=== PATIENT | female | born 1975 | race African-American/Black ===

== ENCOUNTER 2019-04-25 21:51 | Observation (INO) | payer SELFPAY ==
[2019-04-25] MEDS ORDERED: NORMAL SALINE 1000 ML 1,000 ML IV ONE ×2 (22:54→23:38)
[2019-04-25] MEDS ORDERED: METHYLPREDNISOLONE INJ 125 MG/2 ML SDV IV ONE (22:55)
[2019-04-25] MEDS ORDERED: FAMOTIDINE INJ/PF 20 MG/2 ML SDV IV ONE (22:56)
[2019-04-25] MEDS ORDERED: MORPHINE SULFATE 10 MG/ML INJ IV ONE (22:57)
[2019-04-25] MEDS ORDERED: ONDANSETRON HCL INJ/PF 4 MG/2 ML SDV IV ONE (22:57)
--- NOTE | 2019-04-25 22:58 | ER Document Report ---
ED General - General Stated Complaint: NEAR SYNCOPE Time Seen by Provider: 04/25/19 22:32 Mode of Arrival: Medic Information source: Patient, Relative - [facility] Notes: Patient is a 43-year-old female history of multiple sclerosis, is legally blind, stage IV spinal cancer, migraines, previous gastric bypass, who states that she was just restarted on her Rituxan chemotherapy for her spinal cancer and ended u p having some mild diarrhea x2 earlier today without any blood or recent history of antibiotics and then stated she ate some pizza and thinks that she had an allergic reaction to something that she had eaten and developed lightheadedness with itching in her throat and a mild dry cough. The patient states this would fit for previous multiple allergic reactions. The patient took Benadryl with improvement in the cough but still felt lightheaded. When EMS arrived to pick patient up she had blood pressure 64 systolic with a pulse rate that went up to 166 on standing but recovered with normal saline bolus and patient being laid back down flat again. There was no report of any specific arrhythmia besides the tachycardia. The patient denies any chest pain or shortness of breath, but she does report some lower abdominal pain. No vaginal discharge or bleeding. She denies any constipation, vomiting. The patient does report some nausea. The patient states she has chronic back pain which is unchanged related to her spinal cancer. No new numbness or focal weakness. No skin rash or obvious itching. In route the patient gave normal saline bolus 300 cc. Medications topiramate, tramadol, Fioricet, Lexapro, prednisone, levothyroxine, Rituxan, docusate, polyethylene glycol, cetirizine, iron, multivitamin. - Related Data Allergies/Adverse Reactions: acetaminophen [From Tylenol] Allergy (Verified 04/26/19 00:18) iodine Allergy (Verified 04/26/19 00:18) latex Allergy (Verified 04/26/19 00:18) Past Medical History - General Information source: Patient, Relative - Social History Smoking Status: Unknown if Ever Smoked Frequency of alcohol use: None Drug Abuse: None Lives with: Family - Patient recently moved from the [facility] to live with family. Family History: Reviewed & Not Pertinent Review of Systems - Review of Systems -: Yes All other systems reviewed and negative Physical Exam - Vital signs Vitals: Pulse Ox 100 04/25/19 22:10 - Notes Notes: PHYSICAL EXAMINATION: GENERAL: well-nourished and in no acute distress. Patient is legally blind but has significant photophobia which is chronic related to her multiple sclerosis. HEAD: Atraumatic, normocephalic. EYES: Pupils equal round and reactive to light, extraocular movements intact, conjunctiva are normal. ENT: Nares patent, oropharynx clear without exudates. Dry mucous membranes. NECK: Normal range of motion, supple without lymphadenopathy. No carotid bruits. LUNGS: Breath sounds clear to auscultation bilaterally and equal. No wheezes rales or rhonchi. HEART: Regular rate and rhythm without murmurs ABDOMEN: Soft, nondistended abdomen. No guarding, no rebound. No masses appreciated. Tender through the lower midline abdominal region. No mass. Female : deferred Musculoskeletal: Normal range of motion, no pitting or edema. No cyanosis. NEUROLOGICAL: Cranial nerves grossly intact. Normal speech. Chronic generalized weakness which is unchanged and related to the patient's chronic multiple sclerosis. No acute unilateral finding noted. PSYCH: Normal mood, normal affect. SKIN: Warm, Dry, normal turgor, no rashes or lesions noted. Course - Re-evaluation Re-evalutation: 04/25/19 23:32 Patient had already taken Benadryl with improvement. There is no evidence for anaphylaxis. The patient was given IV Pepcid and Solu-Medrol and normal saline bolus. She was given Zofran and morphine for nausea and discomfort. 04/26/19 05:04 Patient had some relief after morphine was given for pain, but pain returned. She was given additional pain medication. Repeat exam still showed pain to the lower abdominal region diffusely. CT scan showed jejunitis with questionable abnormality related to a stitch at the location. Symptoms would fit for this given the pain and mild diarrhea. Stool studies are ordered on the patient, although she only describes 2 slightly loose bowel movements in the last 24 hours and no recent antibiotics. Patient was given 2 L of normal saline then started on normal saline with 20 of KCl at 500 cc an hour. 04/26/19 06:12 Blood cultures and lactic acid and urine culture ordered on the patient. Patient may have a mild UTI. Discussion was undertaken with the surgical list Dr. Persaud who agreed to consult on the patient. He stated he would make the decision on antibiotics based upon his assessment. - Vital Signs Vital signs: Temp Pulse Resp BP Pulse Ox 97.8 F 56 H 122/74 100 04/26/19 05:15 04/26/19 05:15 04/26/19 05:15 04/26/19 05:15 - Laboratory Result Diagrams: 04/25/19 23:40 04/25/19 23:40 Laboratory results interpreted by me: 04/25/19 04/25/19 04/25/19 23:40 23:40 23:40 WBC 13.3 H Hgb 10.4 L Hct 33.7 L MCV 74 L MCH 22.7 L MCHC 30.8 L RDW 18.4 H Plt Count 459 H Lymph % (Auto) 5.9 L Absolute Neuts (auto) 11.4 H Seg Neutrophils % 85.9 H Sodium 134.7 L Potassium 3.5 L AST 143 H Alkaline Phosphatase 133 H Albumin 3.3 L TSH 5.10 H Urine Nitrite 04/26/19 05:12 WBC Hgb Hct MCV MCH MCHC RDW Plt Count Lymph % (Auto) Absolute Neuts (auto) Seg Neutrophils % Sodium Potassium AST Alkaline Phosphatase Albumin TSH Urine Nitrite POSITIVE H - EKG Interpretation by Me EKG shows normal: Sinus rhythm Additional EKG results interpreted by me: 04/26/19 01:02 EKG as interpreted by me showed normal sinus rhythm heart rate of 81. There is no gross evidence for acute WI or ischemia noted. There is no old EKG available for comparison. Discharge - Discharge Clinical Impression: Near syncope Hypotension Qualifiers: Hypotension type: unspecified hypotension type Qualified Code(s): I95.9 - Hypotension, unspecified Diarrhea Qualifiers: Diarrhea type: unspecified type Qualified Code(s): R19.7 - Diarrhea, unspecified Condition: Stable Disposition: OTHER
--- NOTE | 2019-04-25 23:46 | RADIOLOGY REPORT (SQ) ---
EXAM DESCRIPTION: XR CHEST 1 VIEW COMPLETED DATE/TME: 04/25/2019 22:53 CLINICAL HISTORY: 43 years, Female, cough COMPARISON: None. NUMBER OF VIEWS: One TECHNIQUE: Single view of the chest was obtained portably LIMITATIONS: None. FINDINGS: Cardiac and mediastinal contours are normal in appearance. Lungs are clear. No pleural effusion or pneumothorax. Multiple surgical clips project over the left upper quadrant. Mild rightward curvature of the thoracic spine is noted. IMPRESSION: No acute disease. copyright 2010 [employer]- All Rights Reserved
[2019-04-26 00:04] LABS: ABSOLUTE LYMPHOCYTES (AUTO) 0.8 10^3/uL (0.5-4.7); ABSOLUTE MONOCYTES (AUTO) 1.1 10^3/uL (0.1-1.4); ABSOLUTE NEUT (AUTO) 11.4 10^3/uL (1.7-8.2); BASOPHILS % (AUTO) 0.2 % (0-2); HEMATOCRIT 33.7 % (36.0-47.0); HEMOGLOBIN 10.4 g/dL (12.0-15.5); LYMPHOCYTES % (AUTO) 5.9 % (13-45); MEAN CORPUSCULAR HEMOGLOBIN 22.7 pg (27.0-33.4); MEAN CORPUSCULAR HGB CONC 30.8 g/dL (32.0-36.0); MEAN CORPUSCULAR VOLUME 74 fl (80-97); PLATELET COUNT 459 10^3/uL (150-450); RED BLOOD COUNT 4.57 10^6/uL (3.72-5.28); RED CELL DISTRIBUTION WIDTH 18.4 % (11.5-14.0); SEGMENTED NEUTROPHILS % (AUTO) 85.9 % (42-78); TOTAL CELLS COUNTED % (AUTO) 100 %; WHITE BLOOD COUNT 13.3 10^3/uL (4.0-10.5)
[2019-04-26 00:30] LABS: ALBUMIN 3.3 g/dL (3.5-5.0); ALKALINE PHOSPHATASE 133 U/L (38-126); ANION GAP 6 (5-19); ASPARTATE AMINO TRANSFERASE 143 U/L (14-36); BILIRUBIN,DIRECT 0.1 mg/dL (0.0-0.4); BILIRUBIN,TOTAL 0.3 mg/dL (0.2-1.3); BLOOD UREA NITROGEN 11 mg/dL (7-20); CALCIUM 8.5 mg/dL (8.4-10.2); CARBON DIOXIDE 25 mmol/L (22-30); CHLORIDE 104 mmol/L (98-107); GLUCOSE 86 mg/dL (75-110); POTASSIUM 3.5 mmol/L (3.6-5.0); TOTAL PROTEIN 6.5 g/dL (6.3-8.2)
[2019-04-26 00:50] LABS: FREE T4 (FREE THYROXINE) 0.89 ng/dL (0.78-2.19)
[2019-04-26 01:03] LABS: THYROID STIMULATING HORMONE 5.1 uIU/mL (0.47-4.68)
--- NOTE | 2019-04-26 02:02 | RADIOLOGY REPORT (SQ) ---
EXAM DESCRIPTION: CT ABDOMEN PELVIS WITHOUT IV CONTRAST COMPLETED DATE/TME: 04/26/2019 01:01 CLINICAL HISTORY: 43 years Female, abd pain lower, hx of spinal tumor Comparison: None. Technique: No contrast. Coronal and sagittal reformat. This exam was performed according to our departmental dose-optimization program, which includes automated exposure control, adjustment of the mA and/or kV according to patient size and/or use of iterative reconstruction technique.[facility]: Dose Right [facility]: CareDose [facility]: Dose Right [facility]: Teradose 4D [facility]: [employer] LIMITATIONS: None Findings: Cholecystectomy. Gastric suture-clips. Moderate jejunitis with partially loculated jejunal bowel at the left paracentral abdomen, image 37 series 3. Suture material partially encapsulated loop of jejunal bowel the left paracentral abdomen with moderate jejunal bowel wall thickening. No significant thecal sac/cord or nerve root compression. No ascites. No pneumoperitoneum. Normal appendix. No hydronephrosis or hydroureter. No renal/ureteral stone. No evidence of abdominal aortic aneurysm. Unenhanced lower thorax, abdominopelvic structures, and musculoskeleton appear otherwise grossly unremarkable. Impression: Moderate jejunitis with partially loculated jejunal bowel at the left paracentral abdomen, image 37 series 3; there is associated suture. Additional gastric suture-clips. No current obstructive sequelae.
[2019-04-26] MEDS ORDERED: MORPHINE SULFATE 10 MG/ML INJ IV ONE (02:11)
[2019-04-26] MEDS ORDERED: POTASSI CL 20 MEQ/NS 1L 1,000 ML IV ONE (04:04)
[2019-04-26 05:26] LABS: APPEARANCE,URINE SLIGHTLY-CLOUDY; BILIRUBIN,URINE NEGATIVE (NEGATIVE); COLOR,URINE YELLOW; GLUCOSE, URINE NEGATIVE (NEGATIVE); KETONES,URINE NEGATIVE (NEGATIVE); LEUKOCYTE ESTERASE,URINE NEGATIVE (NEGATIVE); NITRITE,URINE POSITIVE (NEGATIVE); PROTEIN,URINE NEGATIVE (NEGATIVE); URINE SPECIFIC GRAVITY 1.015; UROBILINOGEN,URINE NEGATIVE mg/dL (<2.0)
[2019-04-26] MEDS ORDERED: PIPERACILLIN/TAZOBACTAM 3.375 GM VIAL IV ONE ×2 (06:38→11:26)
--- NOTE | 2019-04-26 06:58 | EKG REPORT ---
SEVERITY:- NORMAL ECG - SINUS RHYTHM : Confirmed by: Abebe Menard MD 26-Apr-2019 06:58:16
[2019-04-26] MEDS ORDERED: NORMAL SALINE 1000 ML 1,000 ML IV PRN ×2 (10:08→19:32)
[2019-04-26] MEDS ORDERED: MORPHINE SULFATE 10 MG/ML INJ IV PRN ×3 (11:17→21:40)
[2019-04-26] MEDS ORDERED: GLUCAGON,HUMAN RECOMB 1 MG INJ SUBCUT PRN (11:17)
[2019-04-26] MEDS ORDERED: DEXTROSE 40% GEL 15 GM TUBE PO PRN ×2 (11:17)
[2019-04-26] MEDS ORDERED: DEXTROSE 50%-WATER 25 GM/50 ML DISP.SYRIN IV PRN ×2 (11:17)
--- NOTE | 2019-04-26 11:17 | PDOC H&P ---
History of Present Illness Admission Date/PCP: 04/26/19 08:18 Patient complains of: abdominal pains History of Present Illness: This is a 43-year-old female with history of gastric bypass, hypothyroidism, MS, stage IV STOR[employer]CH[employer] tumor/spine, who started complaining of abdominal pains with near syncopal episode after eating pizza last night at around 7:30 PM. Went to ED after EMS noted her to be hypotensive who responded to IV fluids. She had associated nausea. Denies any fever no chills. She had a CT scan of the abdomen which showed intussusception of the jejunum at the area of the Enrico-en-Y bypass. Past Medical History Cardiac Medical History: Reports: Other - MS Stage 4 spinal ca on chemotherapy Malignancy Medical History: Reports: Bone Cancer - 0f spine stage 4 on chemotherapy Past Surgical History Past Surgical History: Reports: Cholecystectomy, Gastric Bypass Surgery, Other - Umbilical hernia repair with use of mesh 2014 Social History Lives with: Family - Patient recently moved from the [place] area to live with family. Smoking Status: Unknown if Ever Smoked Family History Family History: Reviewed & Not Pertinent Parental Family History Reviewed: Yes Children Family History Reviewed: No Sibling(s) Family History Reviewed.: No Medication/Allergy Home Medications: Diphenhydramine HCl [Benadryl] 50 mg PO BID 04/26/19 Escitalopram Oxalate [Lexapro] 5 mg PO DAILY 04/26/19 Fluticasone Propionate [Flonase Nasal Tavernier 50 Mcg/Tavernier 16 gm] 2 sprays NASL Q12 04/26/19 Levothyroxine Sodium [Synthroid 0.112 mg Tablet] 112 mcg PO DAILY 04/26/19 Prednisone 10 mg PO DAILY 04/26/19 Topiramate [Topamax 25 mg Tablet] 25 mg PO Q12 04/26/19 Tramadol HCl [Ultram 50 mg Tablet] 50 mg PO Q6HP PRN 04/26/19 Allergies/Adverse Reactions: acetaminophen [From Tylenol] Allergy (Verified 04/26/19 00:18) iodine Allergy (Verified 04/26/19 00:18) latex Allergy (Verified 04/26/19 00:18) Review of Systems Constitutional: PRESENT: as per HPI Gastrointestinal: PRESENT: abdominal pain, nausea Musculoskeletal: PRESENT: back pain Physical Exam Vital Signs: Temp Pulse Resp BP Pulse Ox 98.0 F 17 112/73 99 04/26/19 07:59 04/26/19 10:00 04/26/19 07:59 04/26/19 10:00 Intake & Output 04/25/19 04/26/19 04/27/19 06:59 06:59 06:59 Intake Total 1999 1000 Balance 1999 1000 Weight 77.111 kg General appearance: PRESENT: mild distress Head exam: PRESENT: atraumatic Eye exam: PRESENT: conjunctiva pink Mouth exam: PRESENT: moist Neck exam: PRESENT: full ROM Respiratory exam: PRESENT: clear to auscultation penelope Cardiovascular exam: PRESENT: RRR Pulses: PRESENT: normal radial pulses Vascular exam: PRESENT: normal capillary refill GI/Abdominal exam: PRESENT: soft, tenderness - Epigastric area Rectal exam: PRESENT: deferred Extremities exam: PRESENT: full ROM Musculoskeletal exam: PRESENT: ambulatory Neurological exam: PRESENT: alert, oriented to person, oriented to place, oriented to time, oriented to situation Psychiatric exam: PRESENT: appropriate affect Skin exam: PRESENT: normal color, warm Results Laboratory Results: 04/25/19 23:40 04/25/19 23:40 04/25/19 04/25/19 04/25/19 23:40 23:40 23:40 WBC 13.3 H RBC 4.57 Hgb 10.4 L Hct 33.7 L MCV 74 L MCH 22.7 L MCHC 30.8 L RDW 18.4 H Plt Count 459 H Seg Neutrophils % 85.9 H Sodium 134.7 L Potassium 3.5 L Chloride 104 Carbon Dioxide 25 Anion Gap 6 BUN 11 Creatinine 0.75 Est GFR ( Amer) > 60 Glucose 86 Lactic Acid Calcium 8.5 Magnesium 1.6 Total Bilirubin 0.3 AST 143 H Alkaline Phosphatase 133 H Total Protein 6.5 Albumin 3.3 L TSH 5.10 H Free T4 0.89 Serum HCG, Qual Urine Color Urine Appearance Urine pH Ur Specific [place] Urine Protein Urine Glucose (UA) Urine Ketones Urine Blood Urine Nitrite Ur Leukocyte Esterase Urine WBC (Auto) Urine RBC (Auto) 04/25/19 04/26/19 04/26/19 23:40 05:12 06:20 WBC RBC Hgb Hct MCV MCH MCHC RDW Plt Count Seg Neutrophils % Sodium Potassium Chloride Carbon Dioxide Anion Gap BUN Creatinine Est GFR ( Amer) Glucose Lactic Acid 0.8 Calcium Magnesium Total Bilirubin AST Alkaline Phosphatase Total Protein Albumin TSH Free T4 Serum HCG, Qual NEGATIVE Urine Color YELLOW Urine Appearance SLIGHTLY-CLOUDY Urine pH 6.0 Ur Specific [place] 1.015 Urine Protein NEGATIVE Urine Glucose (UA) NEGATIVE Urine Ketones NEGATIVE Urine Blood NEGATIVE Urine Nitrite POSITIVE H Ur Leukocyte Esterase NEGATIVE Urine WBC (Auto) 3 Urine RBC (Auto) 1 04/25/19 23:40 Troponin I 0.028 Impressions: Chest X-Ray 04/25/19 22:53 IMPRESSION: No acute disease. copyright 2010 [employer]- All Rights Reserved Assessment & Plan - Diagnosis (1) Intussusception of jejunum Is this a current diagnosis for this admission?: Yes (2) Status post gastric bypass for obesity Is this a current diagnosis for this admission?: Yes (3) Multiple sclerosis Is this a current diagnosis for this admission?: Yes (4) Spinal cord tumor Is this a current diagnosis for this admission?: Yes (5) Seizure disorder Is this a current diagnosis for this admission?: Yes - Time Time Spent: 30 to 50 Minutes - Inpatient Certification Medical Necessity: Need For IV Fluids, Need for IV Antibiotics, Need for Surgery - Plan Summary Plan Summary: Hydrate IV antibiotics For laparoscopic revision of gastric bypass by Dr. Newman
[2019-04-26] MEDS ORDERED: PROPOFOL INJ 200 MG/20 ML VIAL IV ONE (13:13)
[2019-04-26] MEDS ORDERED: FENTANYL CITRATE INJ/PF 250 MCG/5 ML AMPULE ONE (13:13)
[2019-04-26] MEDS ORDERED: MIDAZOLAM 2 MG/2 ML INJ ONE (13:13)
[2019-04-26] MEDS ORDERED: BUPIVACAINE HCL 0.25% /EPINEPHRINE INJ/PF 30 ML SDV ONE (13:24)
[2019-04-26] MEDS ORDERED: FAMOTIDINE INJ/PF 20 MG/2 ML SDV IV ONE (14:04)
[2019-04-26] MEDS ORDERED: DIPHENHYDRAMINE HCL 50 MG/ML VIAL ONE (14:04)
[2019-04-26] MEDS ORDERED: DEXAMETHASONE SOD PHOS INJ 10 MG/1 ML VIAL ONE (14:04)
[2019-04-26] MEDS ORDERED: NEOSTIGMINE METHYLSULFATE 10 MG/10 ML VIAL ONE (14:37)
[2019-04-26] MEDS ORDERED: LIDOCAINE 2% INJ-PF (20 MG/ML) 2 ML AMPUL ONE (14:37)
[2019-04-26] MEDS ORDERED: GLYCOPYRROLATE 1 MG/5 ML VIAL ONE (14:37)
[2019-04-26] MEDS ORDERED: ROCURONIUM BROMIDE INJ 50 MG/5 ML VIAL IV ONE (14:37)
[2019-04-26] MEDS ORDERED: SUCCINYLCHOLINE CHLORIDE INJ 200 MG/10 ML VIAL ONE (14:37)
[2019-04-26] MEDS ORDERED: ONDANSETRON HCL INJ/PF 4 MG/2 ML SDV ONE (14:37)
[2019-04-26] MEDS ORDERED: DEXAMETHASONE SOD PHOSPHATE INJ 4 MG/1 ML VIAL ONE (14:37)
[2019-04-26] MEDS ORDERED: MORPHINE SULFATE 10 MG/ML INJ ONE (15:18)
--- NOTE | 2019-04-26 15:54 | Operative Report ---
Nonrecallable Operative Report DATE OF SURGERY: 04/26/19 PREOPERATIVE DIAGNOSIS: Intussusception status post gastric bypass POSTOPERATIVE DIAGNOSIS: Intussusception status post gastric bypass OPERATION: Diagnostic laparoscopy with lysis of adhesions. Internal hernia repa ir and reduction of intussusception with small bowel plication SURGEON: Brian ANESTHESIA: GA TISSUE REMOVED OR ALTERED: None COMPLICATIONS: None ESTIMATED BLOOD LOSS: 2 cc INTRAOPERATIVE FINDINGS: Morrison hernia and intussusception PROCEDURE: Patient was brought to the operating room awake alert in stable condition placed in the operative table supine position induced under general anesthesia intubated he was prepped and draped in usual sterile manner for the procedure. Appropriate timeout a varies needle was placed in through the left upper quadrant Madrigal's point and the abdomen was insufflated with 6 L of CO2 gas right lower quadrant 10 mm incision was made with a 15 blade and a 10 mm port placed in the abdominal cavity intradomal visualization revealed no evidence of a varies needle or trocar injury was some omental adhesions to the anterior abdominal wall under direct vision a 5 oh meter right upper quadrant port was placed The anterior abdominal wall adhesions were taken down with the LigaSure device. We then able to place a 10 mm port through an infra umbilical incision under direct vision. I first identified the Enrico limb and I traced at that back to the gastric anastomosis in the epigastrium I could identify the gastric remnant there is no adhesions to the gastric remnant ruling was an antecolic position it appeared to be normal there was a small Morrison defect but no bowel incarcerated within it. Around the Enrico limb to the jejunojejunostomy and I did note that there was an incarcerated loop of small bowel within a small mesenteric defect in addition to this as we decompressed that incarcerated bowel we also noted that the just distal to the jejunojejunostomy there was an intussuscepted portion of bowel into the anastomosis. It was easily reduced. Was completed I ran the rest of the small bowel to the terminal ileum and the ascending colon was visualized as well as the transverse colon splenic flexure descending colon and sigmoid colon all appeared to be normal there is no other adhesions or could be noted. We then turned attention to the Morrison defect which was closed with a [id number] placed 2-0 silk suture. I then closed the mesenteric defect at the jejunojejunostomy with 2 stitches of 2-0 silk suture. In the area of the intussusception the bowel was then plicated to itself for a distance of approximately 6 cm and this was run with a 2-0 silk suture to complete the plication should be noted that the jejunojejunostomy was not excessively dilated But patent. Completing this I then reexamined all closures noted noted them to be intact and then reduce the pneumoperitoneum we closed both fascial defects which were 10 mm with 0 Vicryl and then closed all 3 skin incisions with intracuticular 4-0 Monocryl Steri-Strips completed the procedure estimated blood loss was negligible sponge needle counts were correct x2 the patient was transferred recovery in stable condition.
[2019-04-26] MEDS ORDERED: OXYCODONE-ACETAMINOPHEN 5-325 MG TABLET PO PRN (15:57)
--- NOTE | 2019-04-26 15:57 | Discharge Summary ---
Discharge Summary (SDC) - Discharge Final Diagnosis: Status post gastric bypass with internal hernia Date of Surgery: 04/26/19 Discharge Date: 04/26/19 Condition: Good Discharge Diet: Full Liquids - Should she remain on full liquid diet supplemented protein shakes for the next 3 to 4 days before resuming her regular diet. Discharge Activity: Activity As Tolerated Report the Following to Your Physician Immediately: Shortness of Breath, Fever over 101 Degrees, Unusual Bleeding, Redness
[2019-04-26] MEDS ORDERED: FENTANYL CITRATE INJ/PF 100 MCG/2 ML AMPUL IV PRN ×3 (16:17)
[2019-04-26] MEDS ORDERED: MEPERIDINE HCL/PF INJ 25 MG/1 ML DISP.SYRIN IV PRN (16:17)
[2019-04-26] MEDS ORDERED: DIPHENHYDRAMINE HCL 50 MG/ML VIAL IV PRN (16:17)
[2019-04-26] MEDS ORDERED: PROMETHAZINE HCL INJ 25 MG/1 ML VIAL IV PRN (16:17)
[2019-04-26] MEDS ORDERED: FENTANYL CITRATE INJ/PF 100 MCG/2 ML AMPUL ONE (16:32)
[2019-04-26] MEDS ORDERED: HYDROCODONE/ACETAMINOPHEN 5-325 MG TABLET ONE (17:48)
[2019-04-26] MEDS ORDERED: CODEINE SULF 30 MG TABLET PO PRN (21:38)
[2019-04-26] MEDS: DIPHENHYDRAMINE HCL 50 MG/ML VIAL IV PRN (22:15)
[2019-04-27] MEDS ORDERED: KETOROLAC TROMETHAMINE INJ/PF 30 MG/1 ML SDV IV SCH ×2
[2019-04-27] MEDS ORDERED: TRAMADOL HCL 50 MG TABLET PO PRN (03:42)
[2019-04-27] MEDS ORDERED: CODEINE SULF 30 MG TABLET PO PRN (03:43)
[2019-04-27] MEDS: DIPHENHYDRAMINE HCL 50 MG/ML VIAL IV PRN (07:10)
[2019-04-27] MEDS ORDERED: OXYCODONE-ACETAMINOPHEN 5-325 MG TABLET PO PRN (08:09)
[2019-04-27] MEDS ORDERED: DIPHENHYDRAMINE HCL 50 MG/ML VIAL IV SCH ×2 (10:00→11:00)
--- NOTE | 2019-04-27 12:31 | PDOC PROGRESS REPORT ---
Subjective Progress Note for:: 04/27/19 Subjective:: Patient reporting her lip is still swollen, initially improved then worsened. She is disenchanted with her pain management; she wants IV Benadryl to continue throughout the day. Overall she states she feels better from a abdominal standpoint, and has been tolerating clear liquids. Reason For Visit: JEJUNAL INTUSSUSECPTION AT THE ROUXENY LIMB POST Physical Exam Vital Signs: Temp Pulse Resp BP Pulse Ox 98.6 F 67 16 131/97 H 100 04/27/19 08:41 04/27/19 08:41 04/27/19 08:41 04/27/19 08:41 04/27/19 08:41 Intake & Output 04/26/19 04/27/19 04/28/19 06:59 06:59 06:59 Intake Total 1999 5440 Balance 1999 5440 Weight 77.111 kg 79.2 kg General appearance: PRESENT: no acute distress Teeth exam: PRESENT: dental caries, other - Widespread dental caries with loss of teeth GI/Abdominal exam: PRESENT: other - Soft; nontender; all operative incisions with Steri-Strips intact Psychiatric exam: PRESENT: other - Patient has many questions about her current care, future care as well as who is providing her care. Results Laboratory Results: 04/25/19 23:40 04/25/19 23:40 04/26/19 12:14 Blood Type O POSITIVE Antibody Screen NEGATIVE 04/25/19 23:40 Troponin I 0.028 Impressions: Chest X-Ray 04/25/19 22:53 IMPRESSION: No acute disease. copyright 2010 [email or web address]- All Rights Reserved Assessment & Plan - Diagnosis (1) Intussusception of jejunum Is this a current diagnosis for this admission?: Yes Plan: Impression: Patient is 1 day status post a reduction of internal hernia, plic ation of jejunum and closure of hernia defect laparoscopically by Dr. Newman, overall doing well. Recommendation and plan. 1. I spent approximately 20 minutes in the patient's room discussing her postoperative clinical course, and her expectations going forward. She has specific requests and asks very pointed questions. Apparently she has dismissed several healthcare providers from her room. 2. I suggested she have 2 more IV doses of Benadryl, then will reassess the status of her lower lip. If she is stable, then she is to be discharged home. (2) Multiple sclerosis Is this a current diagnosis for this admission?: Yes (3) Status post gastric bypass for obesity Is this a current diagnosis for this admission?: Yes
[2019-04-27 12:46] VITALS: BP 136/83
== END 2019-04-27 14:20 | disposition home or self-care (01) ==
LOC: ER 21:51 → EH 04-26 08:18 → INTOOBSV 04-26 08:18 → 2S 04-26 20:57
PROVIDERS: ADMIT Surgery; ATTEND Surgery
PROC: 0DS84ZZ Reposition Small Intestine, Percutaneous Endoscopic Approach (ICD-10-PCS; principal; 2019-04-25)
DX: K91.30 Postprocedural intestinal obstruction, unspecified as to partial versus complete (principal); Y83.2 Surgical operation with anastomosis, bypass or graft as the cause of abnormal reaction of the patient, or of later complication, without mention of misadventure at the time of the procedure; K45.8 Other specified abdominal hernia without obstruction or gangrene; R22.0 Localized swelling, mass and lump, head; R55 Syncope and collapse; C41.2 Malignant neoplasm of vertebral column; H54.8 Legal blindness, as defined in USA; G35 Multiple sclerosis; C79.51 Secondary malignant neoplasm of bone; K02.9 Dental caries, unspecified; K08.109 Complete loss of teeth, unspecified cause, unspecified class; I95.9 Hypotension, unspecified; G40.909 Epilepsy, unspecified, not intractable, without status epilepticus; R05 Cough; R09.89 Other specified symptoms and signs involving the circulatory and respiratory systems; Z90.49 Acquired absence of other specified parts of digestive tract; Z79.899 Other long term (current) drug therapy; Z88.6 Allergy status to analgesic agent; Z91.041 Radiographic dye allergy status; Z91.040 Latex allergy status
CPT/HCPCS: 93005; 96376; 99285; 96361; 96375; 96365; 96366; 96368; 86900; 86901; 36415 ×2; 87040; 87086; 84439; 86850; 83735; 84443; 84703; 85025; 87088; 80053; 81001; 84484; 87186; 83605; 71045; 74176; 93010; 00790; 44050; G0378 ×3; J2250; J3490 ×5; J1100 ×2; J1200 ×2; J3010 ×2; J2930; J1885; J2270 ×2; J2710; J0330; J2405 ×2; J7030 ×2; J3480; J2704; S0028 ×2; J2543; 790

== ENCOUNTER 2019-08-19 14:26 | Emergency (ER) | payer SELFPAY ==
[2019-08-19] MEDS ORDERED: LORAZEPAM INJ 2 MG/1 ML VIAL IV ONE (14:57)
[2019-08-19] MEDS ORDERED: LORAZEPAM INJ 2 MG/1 ML VIAL IM ONE (14:57)
[2019-08-19] MEDS ORDERED: THIAMINE HCL 100 MG in NORMAL SALINE 50 ML IV ONE (15:10)
[2019-08-19] MEDS ORDERED: NORMAL SALINE 1000 ML 1,000 ML IV ONE (15:10)
[2019-08-19 15:22] LABS: APPEARANCE,URINE CLEAR; BILIRUBIN,URINE NEGATIVE (NEGATIVE); COLOR,URINE COLORLESS; GLUCOSE, URINE NEGATIVE (NEGATIVE); KETONES,URINE NEGATIVE (NEGATIVE); LEUKOCYTE ESTERASE,URINE NEGATIVE (NEGATIVE); NITRITE,URINE NEGATIVE (NEGATIVE); PROTEIN,URINE NEGATIVE (NEGATIVE); URINE SPECIFIC GRAVITY 1.002; UROBILINOGEN,URINE NEGATIVE mg/dL (<2.0)
--- NOTE | 2019-08-19 15:24 | ER Document Report ---
ED General - General Chief Complaint: Seizure Stated Complaint: POSSIBLE SEIZURE Time Seen by Provider: 08/19/19 14:57 Primary Care Provider: MARI MCGOVERN MD [EMERITUS] - Follow up in 1 week (for neurology follow up) JANE BURNS DO [NO LOCAL MD] - Follow up in 3-5 days (for primary care follow up. ) TRAVEL OUTSIDE OF THE [place] IN LAST 30 DAYS: No - HPI Notes: 43-year-old female to the emergency department with EMS with complaints of seizure. Apparently the patient called EMS this afternoon stating that she was having difficulty breathing and when EMS got there her roommate stated that she had a seizure. In transport with EMS she had another seizure and EMS gave her a total of 5 mg of Versed intranasally. She stopped seizing after the Versed. Upon arrival here she was up and ambulating in the emergency department when she got back in the bed apparently she had another seizure. I was called into the room to evaluate the patient at this point. Apparently this patient has stage IV spinal cancer. She states that her oncologist is at [facility] and "I came here to ". She states that her oncologist told her that she had 2 weeks to 2 months to live. She states that she has no advanced directive plans in place. She has not been offered palliative care or hospice care. She states that the reason for this is because she has no insurance. She is not currently on any chemotherapy. Apparently she takes tramadol for pain but ran out several days ago and has been drinking to try to help control her pain. Apparently she has been having seizures for the past couple of weeks. She had 2 earlier this week and then 1 last week. She is not on any medicines for seizures. She states that she needs liquid pain medicine because she had a gastric bypass several years ago and cannot tolerate the pill form. Apparently the patient also has a history of MS. She admits to pain all over. - Related Data Allergies/Adverse Reactions: acetaminophen [From Tylenol] Allergy (Verified 04/26/19 00:18) iodine Allergy (Verified 04/26/19 00:18) latex Allergy (Verified 04/26/19 00:18) Penicillins Allergy (Verified 08/19/19 15:40) Home Medications: toprimate 25 mg, tramadol 50 mg, escitalopram 5 mg, levothyroxine 112 mcg Past Medical History - General Information source: Patient, Emergency Med Personnel - Social History Smoking Status: Unknown if Ever Smoked Frequency of alcohol use: 3 drinks a day, everyday Drug Abuse: Marijuana Lives with: Other - Roommates Family History: Reviewed & Not Pertinent Patient has suicidal ideation: No Patient has homicidal ideation: No Malignancy Medical History: Reports: Hx Bone Cancer - 0f spine stage 4 on chemotherapy Past Surgical History: Reports: Hx Cholecystectomy, Hx Gastric Bypass Surgery, Other - Umbilical hernia repair with use of mesh 2014 - Immunizations Hx Diphtheria, Pertussis, Tetanus Vaccination: Yes Review of Systems - Review of Systems Constitutional: denies: Chills, Fever EENT: No symptoms reported Cardiovascular: denies: Chest pain, Palpitations, Syncope, Dizziness, Lightheaded Respiratory: See HPI, Short of breath. denies: Cough Gastrointestinal: denies: Abdominal pain, Diarrhea, Nausea, Vomiting Genitourinary: No symptoms reported Musculoskeletal: See HPI, Muscle pain Skin: No symptoms reported Hematologic/Lymphatic: No symptoms reported Neurological/Psychological: Seizure -: Yes All other systems reviewed and negative Physical Exam - Vital signs Vitals: Temp Resp BP Pulse Ox 98.1 F 12 130/87 H 100 08/19/19 14:52 08/19/19 14:52 08/19/19 14:52 08/19/19 14:52 Interpretation: Normal - General General appearance: Alert In distress: Moderate Notes: as I enter the wound, patient is shaking in the stretcher. She is rolling her eyes back and will not interact with any of the staff. Most of the shaking appears to be in the upper body and neck. - HEENT Head: Normocephalic, Atraumatic Eyes: Normal Pupils: PERRL Ears: Normal External canal: Normal Tympanic membrane: Normal Sinus: Normal Nasal: Normal Mouth/Lips: Normal Pharynx: Normal. No: Potential airway comprom. Neck: Normal, Supple. No: Lymphadenopathy, Meningismus - Respiratory Respiratory status: No respiratory distress Chest status: Nontender. No: Accessory muscle use Breath sounds: Normal. No: Rales, Rhonchi, Stridor, Wheezing Chest palpation: Normal - Cardiovascular Rhythm: Regular Heart sounds: Normal auscultation Murmur: No Notes: no leg edema - Abdominal Inspection: Normal Distension: No distension Bowel sounds: Normal Tenderness: Nontender Organomegaly: No organomegaly - Extremities General upper extremity: Normal inspection, Nontender, Normal color, Normal ROM, Normal temperature General lower extremity: Normal inspection, Nontender, Normal color, Normal ROM, Normal temperature, Normal weight bearing. No: Azucena's sign - Neurological Neuro grossly intact: Yes Cognition: Normal Orientation: AAOx4 [place] Coma Scale Eye Opening: Spontaneous [place] Coma Scale Verbal: Oriented [place] Coma Scale Motor: Obeys Commands [place] Coma Scale Total: 15 Speech: Normal Motor strength normal: LUE, RUE, LLE, RLE Sensory: Normal Notes: 1 mg of Ativan was given to patient. About 5 minutes after administration of Ativan, patient was much more alert and talking to me. She did not really experience a full post ictal period. She has no focal neuro deficit and will follow all of my commands. - Psychological Associated symptoms: Anxious - Skin Skin Temperature: Warm Skin Moisture: Dry Skin Color: Normal Course - Re-evaluation Re-evalutation: 08/19/19 15:[address] Marx. Asked him to round on patient. He agrees with the current plan. 08/19/[address] Marx went and saw the patient. He agrees with the current plan. He would like me to add a thyroid level to her. She has been resting in her room for most of the evening. Given her history of seizure disorder, Dr. Marx would like for her to follow-up outpatient. We did attempt to get records from [facility] to find out more information about her stage IV spinal cancer. We called [facility] and they stated that patient had never been a patient there and they have no records. I asked patient if she was sure that she went to [facility] and she confirms that that is where she had her chemotherapy and her oncology care. I am uncertain of her true oncology status at this point. She is otherwise stable. She has been having very stable vital signs and resting quietly. She did ask for pain medicine several times but did not feel that was appropriate giving her presentation for seizures. She has no tongue that is bitten or any other obvious injuries. We will discharge her home. I discussed this with the patient and she agrees with the plan. I have encouraged her to take her Topomax without fail. Nursing staff informed me that patient is requesting pain medication upon discharge. I would like for her to follow with PCP for further management of chronic pain. Nursing Staff informed me that they were having difficulty with discharging patient. It was escalated to security. Apparently security had difficulty with the patient and then police were called. Apparently patient was filming officers and conversations. Apparently friends of the patient arrived here and were also upset. At initial conversation, patient told me that she did not have any family here and that the people she lived with were not very nice. Apparently the friends who are here with patient are her best friends and the female friend is her POA. Patient has been in our department for four hours prior to any friends or family arriving. Charge requested that I come back into see the patient. Spent a lengthy amount of time hearing patient's as well as friend's concerns and frustrations with discharge process. After hearing their concerns, I re-explained discharge plan. Strongly encouraged patient to follow up with PCP as she states she has several serious medical conditions. Nursing communications equipment supervisor was involved in this conversation; we did get their phone number and RN communications equipment supervisor will have patient advocate follow up with patient. - Vital Signs Vital signs: Temp Pulse Resp BP Pulse Ox 97.8 F 16 137/89 H 99 08/19/19 19:09 08/19/19 19:09 08/19/19 19:09 08/19/19 19:09 - Laboratory Result Diagrams: 08/19/19 14:50 08/19/19 14:50 Laboratory results interpreted by me: 08/19/19 08/19/19 08/19/19 14:50 14:50 14:50 WBC 2.8 L Hgb 9.1 L Hct 30.0 L MCV 71 L MCH 21.4 L MCHC 30.2 L RDW 19.5 H Lymph % (Auto) 45.9 H Absolute Neuts (auto) 1.1 L Seg Neutrophils % 39.3 L Potassium 3.3 L Chloride 108 H BUN 6 L Albumin 3.4 L Salicylates < 1.0 L Acetaminophen < 10 L Discharge - Discharge Clinical Impression: Seizure disorder Anemia Qualifiers: Anemia type: unspecified type Qualified Code(s): D64.9 - Anemia, unspecified Condition: Stable Disposition: HOME, SELF-CARE Instructions: Seizure, Known Epileptic ([facility]) Additional Instructions: FOLLOW UP WITH PRIMARY CARE WITHOUT FAIL. RETURN IF WORSENING SYMPTOMS. PUSH FLUIDS. TAKE YOUR SEIZURE MEDICINES WITHOUT FAIL. Referrals: JANE BURNS DO [NO LOCAL MD] - Follow up in 3-5 days (for primary care follow up. ) MARI MCGOVERN MD [EMERITUS] - Follow up in 1 week (for neurology follow up)
[2019-08-19 15:27] LABS: ABSOLUTE EOSINOPHILS # (AUTO) 0.1 10^3/uL (0.0-0.6); ABSOLUTE LYMPHOCYTES (AUTO) 1.3 10^3/uL (0.5-4.7); ABSOLUTE MONOCYTES (AUTO) 0.3 10^3/uL (0.1-1.4); ABSOLUTE NEUT (AUTO) 1.1 10^3/uL (1.7-8.2); EOSINOPHILS % (AUTO) 2.3 % (0-6); HEMOGLOBIN 9.1 g/dL (12.0-15.5); LYMPHOCYTES % (AUTO) 45.9 % (13-45); MEAN CORPUSCULAR HEMOGLOBIN 21.4 pg (27.0-33.4); MEAN CORPUSCULAR HGB CONC 30.2 g/dL (32.0-36.0); MEAN CORPUSCULAR VOLUME 71 fl (80-97); MONOCYTES % (AUTO) 11.5 % (3-13); PLATELET COUNT 251 10^3/uL (150-450); RED BLOOD COUNT 4.23 10^6/uL (3.72-5.28); RED CELL DISTRIBUTION WIDTH 19.5 % (11.5-14.0); SEGMENTED NEUTROPHILS % (AUTO) 39.3 % (42-78); TOTAL CELLS COUNTED % (AUTO) 100 %; WHITE BLOOD COUNT 2.8 10^3/uL (4.0-10.5)
[2019-08-19] MEDS ORDERED: THIAMINE HCL INJ 200 MG/2 ML VIAL ONE ×2 (15:29→16:06)
[2019-08-19 15:36] LABS: ALBUMIN 3.4 g/dL (3.5-5.0); ALCOHOL 109 mg/dL (NONE DETECTED); ALKALINE PHOSPHATASE 84 U/L (38-126); ANION GAP 10 (5-19); ASPARTATE AMINO TRANSFERASE 32 U/L (14-36); BILIRUBIN,DIRECT 0.1 mg/dL (0.0-0.4); BILIRUBIN,TOTAL 0.5 mg/dL (0.2-1.3); BLOOD UREA NITROGEN 6 mg/dL (7-20); CALCIUM 8.8 mg/dL (8.4-10.2); CARBON DIOXIDE 24 mmol/L (22-30); CHLORIDE 108 mmol/L (98-107); GLUCOSE 83 mg/dL (75-110); POTASSIUM 3.3 mmol/L (3.6-5.0); TOTAL PROTEIN 7.4 g/dL (6.3-8.2)
[2019-08-19 15:57] LABS: ACETAMINOPHEN < 10 ug/mL (10-30); SALICYLATE < 1.0 mg/dL (2.0-20.0)
--- NOTE | 2019-08-19 16:30 | RADIOLOGY REPORT (SQ) ---
EXAM DESCRIPTION: CT HEAD WITHOUT COMPLETED DATE/TIME: 08/19/2019 4:03 pm REASON FOR STUDY: seizure, hx of stage 4 spinal cancer COMPARISON: None. TECHNIQUE: Axial images acquired through the brain without intravenous contrast. Images reviewed wi th bone, brain and subdural windows. Additional sagittal and coronal reconstructions were generated. Images stored on PACS. All CT scanners at this facility use dose modulation, iterative reconstruction, and/or weight based d osing when appropriate to reduce radiation dose to as low as reasonably achievable (ALARA). [facility]: Dose Right [facility]: CareDose [facility]: Dose Right [facility]: Teradose 4D [facility]: [facility] RADIATION DOSE: CT Rad equipment meets quality standard of care and radiation dose reduction techniq ues were employed. CTDIvol: 53.2 mGy. DLP: 1124 mGy-cm. mGy. LIMITATIONS: Motion artifact on images through the posterior fossa FINDINGS: VENTRICLES: Normal size and contour. CEREBRUM: No masses. No hemorrhage. No midline shift. No evidence for acute infarction. Normal gra y/white matter differentiation. No areas of low density in the white matter. CEREBELLUM: No masses. No hemorrhage. No alteration of density. No evidence for acute infarction. EXTRAAXIAL SPACES: No fluid collections. No masses. ORBITS AND GLOBE: No intra- or extraconal masses. Normal contour of globe without masses. CALVARIUM: No fracture. PARANASAL SINUSES: No fluid or mucosal thickening. SOFT TISSUES: No mass or hematoma. OTHER: No other significant finding. IMPRESSION: Limited negative study EVIDENCE OF ACUTE STROKE: NO. COMMENT: Quality ID # [id number]: Final reports with documentation of one or more dose reduction techniques (e.g., Automated exposure control, adjustment of the mA and/or kV according to patient size, use of iterative reconstruction technique) TECHNICAL DOCUMENTATION: JOB ID: [id number] [email or web address]- All Rights Reserved Reading location - IP/workstation name: [email or web address]
[2019-08-19 16:58] LABS: URINE AMPHETAMINES SCREEN NEGATIVE; URINE BARBITURATES SCREEN NEGATIVE; URINE BENZODIAZEPINES SCREEN NEGATIVE; URINE COCAINE SCREEN NEGATIVE; URINE MARIJUANA (THC) SCREEN NEGATIVE; URINE METHADONE SCREEN NEGATIVE; URINE PHENCYCLIDINE SCREEN NEGATIVE
[2019-08-19 19:18] VITALS: BP 137/89
--- NOTE | 2019-08-19 22:32 | EKG REPORT ---
SEVERITY:- NORMAL ECG - SINUS RHYTHM : Confirmed by: Arely Edmondson MD 19-Aug-2019 22:31:38
== END 2019-08-19 20:16 | disposition home or self-care (01) ==
LOC: ER 14:26
DX: G40.909 Epilepsy, unspecified, not intractable, without status epilepticus (principal); D64.9 Anemia, unspecified; R06.02 Shortness of breath; Z79.899 Other long term (current) drug therapy; Z98.84 Bariatric surgery status
CPT/HCPCS: 93005; 99285; 96361; 96374; 36415; 80307 ×4; 83735; 84443; 84703; 85025; 80053; 81001; 70450; 93010; J2060; J3411; J7030

== ENCOUNTER 2019-08-26 18:22 | Emergency (ER) | payer SELFPAY ==
[2019-08-26 18:57] LABS: ABSOLUTE LYMPHOCYTES (AUTO) 1.8 10^3/uL (0.5-4.7); ABSOLUTE MONOCYTES (AUTO) 0.5 10^3/uL (0.1-1.4); ABSOLUTE NEUT (AUTO) 0.8 10^3/uL (1.7-8.2); BASOPHILS % (AUTO) 0.8 % (0-2); EOSINOPHILS % (AUTO) 1.5 % (0-6); HEMATOCRIT 28.8 % (36.0-47.0); LYMPHOCYTES % (AUTO) 57.9 % (13-45); MEAN CORPUSCULAR HEMOGLOBIN 22.4 pg (27.0-33.4); MEAN CORPUSCULAR HGB CONC 31.3 g/dL (32.0-36.0); MEAN CORPUSCULAR VOLUME 72 fl (80-97); MONOCYTES % (AUTO) 14.7 % (3-13); PLATELET COUNT 281 10^3/uL (150-450); RED BLOOD COUNT 4.02 10^6/uL (3.72-5.28); RED CELL DISTRIBUTION WIDTH 20.4 % (11.5-14.0); SEGMENTED NEUTROPHILS % (AUTO) 25.1 % (42-78); TOTAL CELLS COUNTED % (AUTO) 100 %; WHITE BLOOD COUNT 3.2 10^3/uL (4.0-10.5)
[2019-08-26 19:14] LABS: ALBUMIN 3.4 g/dL (3.5-5.0); ALCOHOL 148 mg/dL (NONE DETECTED); ALKALINE PHOSPHATASE 82 U/L (38-126); ANION GAP 13 (5-19); ASPARTATE AMINO TRANSFERASE 26 U/L (14-36); BILIRUBIN,DIRECT 0.2 mg/dL (0.0-0.4); BILIRUBIN,TOTAL 0.5 mg/dL (0.2-1.3); BLOOD UREA NITROGEN 6 mg/dL (7-20); CALCIUM 8.7 mg/dL (8.4-10.2); CARBON DIOXIDE 23 mmol/L (22-30); CHLORIDE 105 mmol/L (98-107); GLUCOSE 85 mg/dL (75-110); POTASSIUM 3.6 mmol/L (3.6-5.0); TOTAL PROTEIN 7.2 g/dL (6.3-8.2)
[2019-08-26] MEDS ORDERED: LORAZEPAM INJ 2 MG/1 ML VIAL IV ONE ×2 (19:24→19:32)
[2019-08-26] MEDS ORDERED: LEVETIRACETAM 1000 MG/NACL-ISO 1,000 MG/100 ML RTUPB IV ONE (19:32)
--- NOTE | 2019-08-26 19:45 | ER Document Report ---
ED General - General Chief Complaint: Probable Seizure Stated Complaint: SEIZURE Time Seen by Provider: 08/26/19 18:53 Notes: 43-year-old female presents emergency department via EMS after seizure at home. Patient was witnessed falling to the ground and shaking at home by her daughter. They called EMS and EMS brought her to the emergency department for seizures. Patient seized on the way in and they gave her 5 mg of Versed IV. Patient, when I speak with her, is actually less concerned by the fact that she had a seizure, states that she frequently has seizures and takes Topamax and escitalopram for these and is more concerned by the fact that for the past year she has been having an increasing pain in her left ear that now radiates to the left side of his neck as well as an irregular heartbeat. Patient is also concerned because she has a headache to the right side of her head that has been going on for the past 4 days. States it is worse than usual and is now causing decreasing vision in her right eye. 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 Denies any new weakness. 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 Patient was previously being treated at [facility] and [facility] in [place], her last chemotherapy was in September 2018. Moved here somewhat recently. States she has not sought further treatment as she cannot afford it. TRAVEL OUTSIDE OF THE [place] IN LAST 30 DAYS: No - Related Data Allergies/Adverse Reactions: acetaminophen [From Tylenol] Allergy (Verified 04/26/19 00:18) iodine Allergy (Verified 04/26/19 00:18) latex Allergy (Verified 04/26/19 00:18) Penicillins Allergy (Verified 08/19/19 15:40) Past Medical History - General Information source: Patient - Social History Smoking Status: Current Every Day Smoker Frequency of alcohol use: Heavy - States she drinks every day to control her pain. Drug Abuse: None - Uses CBD drinks to control her pain. Family History: Reviewed & Not Pertinent Patient has suicidal ideation: No Patient has homicidal ideation: No Malignancy Medical History: Reports: Hx Bone Cancer - 0f spine stage 4 on chemotherapy Past Surgical History: Reports: Hx Cholecystectomy, Hx Gastric Bypass Surgery, Other - Umbilical hernia repair with use of mesh 2015 - Immunizations Hx Diphtheria, Pertussis, Tetanus Vaccination: Yes Review of Systems - Review of Systems Constitutional: No symptoms reported EENT: See HPI, Blurred vision Cardiovascular: No symptoms reported Musculoskeletal: See HPI Neurological/Psychological: See HPI -: Yes All other systems reviewed and negative Physical Exam - Vital signs Vitals: Resp BP Pulse Ox 12 129/99 H 96 08/26/19 18:31 08/26/19 18:31 08/26/19 18:31 Interpretation: Normal - Notes Notes: GENERAL: Sleeping, awakens easily, interacts well. No acute distress. Smells of alcohol. HEAD: Normocephalic, atraumatic EYES: Both pupils react to light however the right pupil reacts significantly more quickly than left pupil, both pupils are round, left pupil will not fully constrict with light, with effort she is able to follow my finger however she does have some wandering of the left eye during regular conversation. ENT: Oral mucosa moist, tongue midline. Nares patent, no nasal septal hematoma, TMs intact. No lesions noted to the left ear or left tympanic membrane. NECK: Full range of motion, supple, trachea midline. LUNGS: Clear to auscultation bilaterally, no wheezes, rales or rhonchi, no respiratory distress. HEART: Regular rate and rhythm, no murmurs, gallops, rubs. ABDOMEN: Soft, nontender, nondistended, bowel sounds present in all 4 quadrants. EXTREMITIES: Moves all 4 extremities spontaneously, no edema, radial and dorsalis pedis pulses 2/4 bilaterally. No cyanosis. NEUROLOGICAL: Sleeping, awakens easily, oriented x3, normal speech, biceps and patellar DTRs 2+ bilaterally. Left arm is very slightly weak compared to the right arm, muscle strength 4 out of 5 on the left arm and leg, 5 out of 5 on the right arm and leg. PSYCH: Normal mood, normal affect. SKIN: Warm, Dry, normal turgor, no rashes or lesions noted. Course - Re-evaluation Re-evalutation: 08/26/19 20:02 I was called into the patient's room for a tonic-clonic seizure, patient seizure lasted approximately 2 minutes but then stopped, and started again after another minute, I ordered Ativan and within seconds of the Ativan being given the seizure did stop again. I then ordered Keppra and order the nurses to give another milligram of Ativan if the seizing restarted. Shortly thereafter the nurses let me know that the seizure had restarted, we gave her the Ativan and I discussed with the patient's son-in-law that if she continued to have seizures she would need to be intubated. I then went into the room and discussed this plan with the nurses as well, at this point the patient's seizures stopped, she was immediately able to open her eyes, I explained to her that if she had another seizure we would likely need to intubate her and sedate her in order to protect her brain from damage from recurrent seizures. At this point she was able to nod yes that she understood and was agreeable to this plan. Patient has had no further seizure activity. Patient will be taken to CT scan at this point. Patient seizure pattern is somewhat atypical as her seizing motions are quite consistent with typical tonic-clonic seizures however her eyes closed during her seizures, when I open her eyes they are not deviated but she does not react to noxious stimuli during the seizure. Patient does not have a postictal period which is unusual. 08/27/19 00:29 CBC shows leukopenia with white count of 3.2 and anemia with a hemoglobin 9.0, the hemoglobin is not significantly changed from 1 week ago, the leukopenia is mildly improved from 1 week ago, CMP unremarkable, alcohol level is 148, CT scan of the head is unremarkable, EKG is nonischemic. Patient has had no further seizures, was able to go to CAT scan and have an EKG without any difficulty. Patient is now sleeping, when I wake her up but she is able to talk to me but quickly falls back asleep, this is consistent with having received Keppra and several doses of Ativan through the IV. Family members brought in records from other facilities, they do not note any history of central nervous system cancer, they do document the optic neuritis and decreased vision in the left eye. Patient refuses to allow us to test her vision here. Will not cooperate with the examination. I cannot do a full evaluation of the patient's decreased vision out of her right eye without her cooperation. At this time the patient's headache appears to be improved. Patient does need significant further work-up as an outpatient however no further emergent work-up is needed this evening. Discussed with patient and with son-in-law that she will need to arrange follow-up with neurology and oncology as an outpatient for further treatment of her MS, her seizures and her reported central nervous system cancer. Patient will be given steroids this evening because of decreasing vision in her right eye may be related to her MS however I cannot further define why she has decreased vision without her cooperating with examination. Patient and son-in-law were also counseled that the patient needs to stop taking Ultram/tramadol for her pain if she has a history of seizures. 08/27/19 00:[address] 08/26/19 19:45 IMPRESSION: Technically limited evaluation. 1. No acute intracranial findings. If there is persistent concern for acute intracranial process, MRI brain should be considered as a more sensitive evaluation. - Vital Signs Vital signs: Temp Pulse Resp BP Pulse Ox 17 136/94 H 100 08/26/19 19:02 08/26/19 19:02 08/26/19 19:02 - Laboratory Result Diagrams: 08/26/19 18:36 08/26/19 18:36 Laboratory results interpreted by me: 08/26/19 08/26/19 18:36 18:36 WBC 3.2 L Hgb 9.0 L Hct 28.8 L MCV 72 L MCH 22.4 L MCHC 31.3 L RDW 20.4 H Lymph % (Auto) 57.9 H [place] % (Auto) 14.7 H Absolute Neuts (auto) 0.8 L Seg Neutrophils % 25.1 L BUN 6 L Albumin 3.4 L - EKG Interpretation by Me Additional EKG results interpreted by me: 08/27/19 00:51 EKG shows sinus rhythm at a rate of 73, normal axis, normal intervals, no ST segment elevations or depressions, no T wave inversions, rapid R wave progression per my interpretation. Discharge - Discharge Clinical Impression: Seizure disorder, Multiple sclerosis, Spinal cord tumor, Right-sided headache Condition: Stable Disposition: HOME, SELF-CARE Additional Instructions: Today we did not find any bleeding or brain tumor on the CAT scan of your head. You did have several seizures while you were here. We treated you with Keppra and Ativan to stop your seizures. It is very important that you follow-up with a neurologist as an outpatient. I have provided you Dr. Purvis's name and contact information. He is a local neurologist. He will also be able to help treat you for your multiple sclerosis. With your history of seizures it is very important that you never take Ultram, also known as tramadol, again. This is a pain medication that can cause you to have more seizures. Do not take your Ultram/tramadol anymore. It will cause seizures. It is also important that you avoid alcohol with your history of seizures. Alcohol can increase your risk of having seizures. For your headache and decreasing vision in your right eye I have prescribed a taper of steroids which may help with the decreasing vision in your right eye if this is a flare of your multiple sclerosis. I have also provided you with the name of a local hydration plant operator who can work you up further for your decreased vision should you decide that you want to have this investigated. This evening when we tried to check your vision you would not allow us to check it. I have also prescribed you with Dr. Lopez's name and contact information. He is a local oncologist who can help to further work you up and treat you for your central nervous system cancer. You do have very slight weakness in your left arm this evening. This may be a complication of your central nervous system c ancer that your family reports is in your cervical spine. You will need an MRI at some point as an outpatient. If your weakness become significantly worse or you lose sensation in your left arm please return to the emergency department. Prescriptions: Prednisone [Deltasone 10 mg Tablet] 10 mg PO ASDIR PRN #21 tablet PRN Reason: Referrals: STEPHANI LOPEZ MD [ACTIVE STAFF] - Follow up as needed SCOOBY PURVIS MD [NO LOCAL MD] - Follow up as needed XOCHILT DE LA GARZA MD [ACTIVE STAFF] - Follow up as needed
--- NOTE | 2019-08-26 21:06 | RADIOLOGY REPORT (SQ) ---
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 All CT scans at this facility use dose modulation, iterative reconstruction, and/or weight based dosing when appropriate to reduce radiation dose to as low as reasonably achievable. COMPARISON: None. FINDINGS: Examination is technically limited by suboptimal patient positioning. Rasmussen matter, white matter, ventricles, and cisterns are within normal limits. No acute hemorrhage or mass effect. Visualized portions of paranasal sinuses and mastoids are clear. Visualized portions of the calvarium are within normal limits. IMPRESSION: Technically limited evaluation. 1. No acute intracranial findings. If there is persistent concern for acute intracranial process, MRI brain should be considered as a more sensitive evaluation.
--- NOTE | 2019-08-26 22:00 | EKG REPORT ---
SEVERITY:- NORMAL ECG - SINUS RHYTHM : Confirmed by: Abebe Menard MD 26-Aug-2019 22:00:18
[2019-08-27 01:29] VITALS: BP 106/66
== END 2019-08-27 01:44 | disposition home or self-care (01) ==
LOC: ER 18:22
DX: G40.909 Epilepsy, unspecified, not intractable, without status epilepticus (principal); Z79.899 Other long term (current) drug therapy; G35 Multiple sclerosis; D49.7 Neoplasm of unspecified behavior of endocrine glands and other parts of nervous system; R51 Headache; D72.819 Decreased white blood cell count, unspecified; D64.9 Anemia, unspecified; H92.02 Otalgia, left ear; H54.3 Unqualified visual loss, both eyes; H53.8 Other visual disturbances; F17.200 Nicotine dependence, unspecified, uncomplicated; Z88.8 Allergy status to other drugs, medicaments and biological substances; Z91.040 Latex allergy status; Z88.0 Allergy status to penicillin; Z98.84 Bariatric surgery status
CPT/HCPCS: 93005; 99284; 96375; 96365; 96366; 36415; 82962; 80307; 83735; 85025; 80053; 70450; 93010; J2060; J1953

== ENCOUNTER 2019-09-01 10:31 | Emergency (ER) | payer SELFPAY ==
[2019-09-01 10:52] LABS: ABSOLUTE EOSINOPHILS # (AUTO) 0.1 10^3/uL (0.0-0.6); ABSOLUTE LYMPHOCYTES (AUTO) 2.1 10^3/uL (0.5-4.7); ABSOLUTE MONOCYTES (AUTO) 0.5 10^3/uL (0.1-1.4); ABSOLUTE NEUT (AUTO) 0.9 10^3/uL (1.7-8.2); BASOPHILS % (AUTO) 1.2 % (0-2); EOSINOPHILS % (AUTO) 1.4 % (0-6); HEMATOCRIT 32.7 % (36.0-47.0); LYMPHOCYTES % (AUTO) 58.3 % (13-45); MEAN CORPUSCULAR HGB CONC 30.7 g/dL (32.0-36.0); MEAN CORPUSCULAR VOLUME 72 fl (80-97); PLATELET COUNT 306 10^3/uL (150-450); RED BLOOD COUNT 4.57 10^6/uL (3.72-5.28); RED CELL DISTRIBUTION WIDTH 20.2 % (11.5-14.0); SEGMENTED NEUTROPHILS % (AUTO) 25.1 % (42-78); TOTAL CELLS COUNTED % (AUTO) 100 %; WHITE BLOOD COUNT 3.6 10^3/uL (4.0-10.5)
[2019-09-01 11:13] LABS: ALBUMIN 3.7 g/dL (3.5-5.0); ALCOHOL 128 mg/dL (NONE DETECTED); ALKALINE PHOSPHATASE 99 U/L (38-126); ANION GAP 13 (5-19); ASPARTATE AMINO TRANSFERASE 30 U/L (14-36); BILIRUBIN,DIRECT 0.2 mg/dL (0.0-0.4); BILIRUBIN,TOTAL 0.9 mg/dL (0.2-1.3); BLOOD UREA NITROGEN 10 mg/dL (7-20); CALCIUM 9.3 mg/dL (8.4-10.2); CARBON DIOXIDE 22 mmol/L (22-30); CHLORIDE 104 mmol/L (98-107); GLUCOSE 78 mg/dL (75-110); POTASSIUM 3.9 mmol/L (3.6-5.0); TOTAL PROTEIN 7.8 g/dL (6.3-8.2)
[2019-09-01 14:21] LABS: APPEARANCE,URINE CLEAR; BILIRUBIN,URINE NEGATIVE (NEGATIVE); COLOR,URINE YELLOW; GLUCOSE, URINE NEGATIVE (NEGATIVE); KETONES,URINE NEGATIVE (NEGATIVE); LEUKOCYTE ESTERASE,URINE TRACE (NEGATIVE); NITRITE,URINE NEGATIVE (NEGATIVE); PROTEIN,URINE NEGATIVE (NEGATIVE); URINE SPECIFIC GRAVITY 1.004
[2019-09-01 14:30] VITALS: BP 109/83
--- NOTE | 2019-09-01 14:33 | ER Document Report ---
Entered by AWAIS ESCAMILLA SCRIBE 09/01/19 1429 Acting as scribe for:JAVON REBOLLAR IV, MD ED Seizure - General Chief Complaint: Seizure Stated Complaint: POSSIBLE SEIZURE Time Seen by Provider: 09/01/19 14:16 Primary Care Provider: CRISTY COMBS MD [HONORARY] - Follow up as needed Mode of Arrival: Medic Information source: Patient Cannot obtain history due to: Uncooperative Notes: This 43-year-old female patient presents to the emergency department today for seizures per EMS report. The patient appeared to be sleeping upon entry, was woken up but is only minimally cooperative with providing history. The patient was asked "So did you have a seizure today?" and she responds with "they said I did" but does not provide any further details. When reviewing [facility] records it appears that the patient just recently moved to the area, a few weeks ago. This is now the third time in the past 2 weeks that the patient has been seen here for a "seizure". Patient was seen here on 08/19/2019 as well as 08/26/2019 for "seizures". Patient was asked about her compliance with her seizure medications, to which she replies "I take them almost every day". When asked to further elaborate on this the patient mentions that she "missed one day recently" but is unable or unwilling to say what day this was. During the patient's last visit, it appears that the patient had a very atypical seizure, and the provider even mentioned that there is serious doubt as to whether these seizures are truly epileptic in nature. During that visit, the patient had reportedly repeatedly "seized" while being here in the emergency department and when the provider went into the room and have voiced her concern for the repeated seizures to the family and the need for intubation if the seizures did not stop the patient immediately stopped seizing and did not have another seizure throughout the rest of the visit here. 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 Apparently family members eventually brought in records from [place] which did confirm some of the history that the patient had given such as left sided optic neuritis but nowhere in the documentation was this "stage IV C NS cancer" or seizures mentioned. - Related Data Allergies/Adverse Reactions: acetaminophen [From Tylenol] Allergy (Verified 04/26/19 00:18) iodine Allergy (Verified 04/26/19 00:18) latex Allergy (Verified 04/26/19 00:18) Penicillins Allergy (Verified 08/19/19 15:40) Past Medical History - General Information source: [facility] Records Cannot obtain history due to: Uncooperative - Social History Smoking Status: Unknown if Ever Smoked Family History: Reviewed & Not Pertinent Patient has suicidal ideation: No Patient has homicidal ideation: No Malignancy Medical History: Reports: Hx Bone Cancer - reports "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 Patient was woken up for exam however she continues to act as if she has fallen back asleep although she has slight facial expressions to certain things that are being said. Uncooperative. HEENT: Normocephalic. Atraumatic. PERRL. Extraocular movements intact. Oropharynx clear. Neck: Supple. Non-tender. Respiratory: No respiratory distress. Clear and equal breath sounds bilaterally. Cardiovascular: Regular rate and rhythm. Abdominal: Normal Inspection. Non-tender. No distension. Normal Bowel Sounds. Back: No gross abnormalities. Extremities: Moves all four extremities. Upper extremities: Normal inspection. Normal ROM. Lower extremities: Normal inspection. No edema. Normal ROM. Neurological: Normal cognition. AAOx4. Normal speech. Psychological: Unable to assess Skin: Warm. Dry. Normal color. Course - Re-evaluation Re-evalutation: 09/01/19 14:31 Patient has been observed in the ED. Patient has had no seizure activity during her visit in the ED. The results of the ED MSE have been discussed with the patient. - Vital Signs Vital signs: Temp Pulse Resp BP Pulse Ox 97.9 F 15 109/83 100 09/01/19 14:27 09/01/19 14:27 09/01/19 14:27 09/01/19 14:27 09/01/19 14:33 Vital signs reviewed by this MD. - Laboratory Result Diagrams: 09/01/19 10:38 09/01/19 10:38 Laboratory results interpreted by me: 09/01/19 09/01/19 10:38 14:04 WBC 3.6 L Hgb 10.0 L Hct 32.7 L MCV 72 L MCH 22.0 L MCHC 30.7 L RDW 20.2 H Lymph % (Auto) 58.3 H Pitt % (Auto) 14.0 H Absolute Neuts (auto) 0.9 L Seg Neutrophils % 25.1 L Urine Urobilinogen 2.0 H Ur Leukocyte Esterase TRACE H Discharge - Discharge Clinical Impression: Seizure disorder, Alcohol ingestion, Noncompliance with medication regimen Condition: Good Disposition: HOME, SELF-CARE Additional Instructions: Return to the Emergency Department without delay if any worse. HOME CARE INSTRUCTIONS & INFORMATION: Thank you for choosing us for your medical needs. We hope you're satisfied with the care you received. After you leave, you must properly care for your problem and, at the same time, observe its progress. Any condition can change. Some illnesses can change rapidly over hours or days. If your condition worsens, return to the Emergency Department or see your physician promptly. ABOUT YOUR X-RAYS AND EKG'S: If you had an EKG or X-rays taken, they have been read by the Emergency Physician. The X-rays and EKG's will also be read by a Radiologist or Railroad Crossing Protection Maintainer within 24 hours. If discrepancies are noted, you will be notified by telephone. Please be certain the ED has a correct telephone number & address where you can be reached. Also, realize that some fractures or abnormalities do not show up on initial X-rays. If your symptoms continue, see your physician. ABOUT YOUR LABORATORY TEST: If you had laboratory tests, the results have been reviewed by the Emergency Physician. Some test results (for example cultures) may not be available for several days. You will be contacted if any test result shows you need additional treatment. Please be certain the ED has a correct telephone number and address where you can be reached. ABOUT YOUR MEDICATIONS: You will receive instructions on how to take your medicine on the prescription label you receive. Additional information may be provided by the Pharmacy. If you have questions afterwards, call the ED for clarification or further instructions. Some prescribed medications may cause drowsiness. Do not perform tasks such as driving a car or operating machinery without consulting your Pharmacist. If you feel you need a refill of pain med ication, your condition will need re-evaluation. Please do not call for a refill of any medication. ABOUT YOUR SIGNATURE: Signature of this document acknowledges to followin. Understanding that you received emergency treatment and that you may be released before al medical problems are known or treated. Please be certain the ED has a correct phone number & address where you can be reached. 2. Acknowledgement that you will arrange for follow-up care as recommended. 3. Authorization for the Emergency Physician to provide information to your follow-up Physician in order to maximize your care. AT ANY TIME, IF YOUR SYMPTOMS CHANGE SIGNIFICANTLY OR WORSEN OR YOU DEVELOP NEW SYMPTOMS, RETURN TO THE EMERGENCY DEPARTMENT IMMEDIATELY FOR RE-EVALUATION. OUR GOAL IS TO PROVIDE EXCELLENT MEDICAL CARE! WE HOPE THAT WE HAVE MET YOUR EXPECTATIONS DURING YOUR EMERGENCY DEPARTMENT VISIT AND THAT YOU FEEL YOU HAVE RECEIVED EXCELLENT CARE! Seizure You have had a seizure. Seizure disorders (epilepsy) of one sort or another affect about one out of 50 people. The seizure occurs because of abnormal electrical activity in the brain. Seizures may be due to drugs and alcohol, strokes, brain injury, or infe ction. In the most common form of epilepsy, no cause can be found. You will require further evaluation to determine the cause of your seizure, and to determine whether anti-seizure medication is required. This follow-up testing is important, so please call us if you encounter problems with scheduling of tests or appointments. YOU SHOULD NOT DRIVE until released to do so by your physician. The law requires that seizures be reported to the chair car driver's license bureau--a seizure while driving could be catastrophic. Call the doctor if seizures recur, or if you develop new symptoms such as fever, severe headache, stiff neck, confusion or increasing sleepiness, weakness or numbness, or visual problems. Referrals: CRISTY COMBS MD [HONORARY] - Follow up as needed I personally performed the services described in the documentation, reviewed and edited the documentation which was dictated to the scribe in my presence, and it accurately records my words and actions.
[2019-09-01 14:41] LABS: URINE AMPHETAMINES SCREEN NEGATIVE; URINE BARBITURATES SCREEN NEGATIVE; URINE COCAINE SCREEN NEGATIVE; URINE METHADONE SCREEN NEGATIVE; URINE PHENCYCLIDINE SCREEN NEGATIVE
[2019-09-01 14:42] LABS: URINE BENZODIAZEPINES SCREEN UNCONFIRMED POSITIVE; URINE MARIJUANA (THC) SCREEN UNCONFIRMED POSITIVE
== END 2019-09-01 14:49 | disposition home or self-care (01) ==
LOC: ER 10:31
DX: G40.909 Epilepsy, unspecified, not intractable, without status epilepticus (principal); Z91.14 Patient's other noncompliance with medication regimen; Z88.6 Allergy status to analgesic agent; Z88.0 Allergy status to penicillin; Z91.040 Latex allergy status; Z90.49 Acquired absence of other specified parts of digestive tract; Z98.84 Bariatric surgery status
CPT/HCPCS: 36415; 80053; 80307; 81001; 83735; 84703; 85025; 99284

== ENCOUNTER 2019-10-22 01:58 | Observation (INO) | payer SELFPAY ==
[2019-10-22] MEDS ORDERED: LEVETIRACETAM 1000 MG/NACL-ISO 1,000 MG/100 ML RTUPB IV ONE (02:11)
[2019-10-22] MEDS ORDERED: MIDAZOLAM 2 MG/2 ML INJ IV ONE (02:11)
[2019-10-22] MEDS ORDERED: NORMAL SALINE 1000 ML 1,000 ML IV ONE (02:18)
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
[2019-10-22 02:47] LABS: ABSOLUTE EOSINOPHILS # (AUTO) 0.1 10^3/uL (0.0-0.6); ABSOLUTE MONOCYTES (AUTO) 0.6 10^3/uL (0.1-1.4); ABSOLUTE NEUT (AUTO) 2.2 10^3/uL (1.7-8.2); BASOPHILS % (AUTO) 0.7 % (0-2); EOSINOPHILS % (AUTO) 1.2 % (0-6); HEMATOCRIT 32.4 % (36.0-47.0); HEMOGLOBIN 9.6 g/dL (12.0-15.5); MEAN CORPUSCULAR HEMOGLOBIN 23.6 pg (27.0-33.4); MEAN CORPUSCULAR HGB CONC 29.8 g/dL (32.0-36.0); MEAN CORPUSCULAR VOLUME 79 fl (80-97); MONOCYTES % (AUTO) 12.4 % (3-13); PLATELET COUNT 288 10^3/uL (150-450); RED BLOOD COUNT 4.09 10^6/uL (3.72-5.28); RED CELL DISTRIBUTION WIDTH 23.7 % (11.5-14.0); SEGMENTED NEUTROPHILS % (AUTO) 44.7 % (42-78); TOTAL CELLS COUNTED % (AUTO) 100 %; WHITE BLOOD COUNT 4.9 10^3/uL (4.0-10.5)
[2019-10-22 03:02] LABS: ALCOHOL 101 mg/dL (NONE DETECTED); ALKALINE PHOSPHATASE 78 U/L (38-126); ANION GAP 11 (5-19); ASPARTATE AMINO TRANSFERASE 101 U/L (14-36); BILIRUBIN,TOTAL 0.3 mg/dL (0.2-1.3); BLOOD UREA NITROGEN 7 mg/dL (7-20); CALCIUM 8.4 mg/dL (8.4-10.2); CARBON DIOXIDE 19 mmol/L (22-30); CHLORIDE 108 mmol/L (98-107); GLUCOSE 78 mg/dL (75-110); TOTAL PROTEIN 6.2 g/dL (6.3-8.2)
--- NOTE | 2019-10-22 03:33 | RADIOLOGY REPORT (SQ) ---
EXAM DESCRIPTION: XR CHEST 1 VIEW COMPLETED DATE/TME: 10/22/2019 02:11 CLINICAL HISTORY: 44 years, Female, multiple seizures COMPARISON: None. NUMBER OF VIEWS: Single TECHNIQUE: Portable upright LIMITATIONS: None. FINDINGS: 0239 hours Cardiomediastinal silhouette is of normal size. Lungs grossly clear. No effusion. No pneumothorax IMPRESSION: No acute intrathoracic process is identified copyright 2010 [employer]- All Rights Reserved
[2019-10-22 03:36] LABS: APPEARANCE,URINE SLIGHTLY-CLOUDY; BILIRUBIN,URINE NEGATIVE (NEGATIVE); COLOR,URINE YELLOW; GLUCOSE, URINE NEGATIVE (NEGATIVE); KETONES,URINE NEGATIVE (NEGATIVE); LEUKOCYTE ESTERASE,URINE MODERATE (NEGATIVE); NITRITE,URINE NEGATIVE (NEGATIVE); PROTEIN,URINE NEGATIVE (NEGATIVE); URINE SPECIFIC GRAVITY 1.004; UROBILINOGEN,URINE NEGATIVE mg/dL (<2.0)
[2019-10-22 03:47] LABS: URINE AMPHETAMINES SCREEN NEGATIVE; URINE BARBITURATES SCREEN NEGATIVE; URINE BENZODIAZEPINES SCREEN NEGATIVE; URINE COCAINE SCREEN NEGATIVE; URINE MARIJUANA (THC) SCREEN NEGATIVE; URINE METHADONE SCREEN NEGATIVE; URINE PHENCYCLIDINE SCREEN NEGATIVE
[2019-10-22] MEDS ORDERED: CEFTRIAXONE 1 GM/D5W RTU 1 GM/50 ML RTUPB IV ONE (06:29)
[2019-10-22] MEDS ORDERED: POTASSIUM CHLORIDE 20 MEQ PACKET PO ONE (06:52)
--- NOTE | 2019-10-22 06:58 | RADIOLOGY REPORT (SQ) ---
EXAM DESCRIPTION: CT CERVICAL SPINE WITHOUT IV CONTRAST COMPLETED DATE/TME: 10/22/2019 06:05 CLINICAL HISTORY: 44 years Female, multiple seizures, ? hx cancer Comparison: None. Technique: No contrast. Coronal and sagittal reformat. This exam was performed according to our departmental dose-optimization program, which includes automated exposure control, adjustment of the mA and/or kV according to patient size and/or use of iterative reconstruction technique.[facility]: Dose Right [facility]: CareDose [facility]: Dose Right [facility]: Teradose 4D [facility]: ShareThe LIMITATIONS: None Findings: Small C4-C5 disc bulge. Normal alignment. Normal curvature. No fracture. Normal vertebral heights. No significant bony spinal or foraminal canal compromise. Partially imaged nuchal soft tissues, inferior cranium, and upper thorax appear otherwise grossly intact. IMPRESSION: No acute findings.
--- NOTE | 2019-10-22 06:59 | RADIOLOGY REPORT (SQ) ---
EXAM DESCRIPTION: CT HEAD WITHOUT IV CONTRAST COMPLETED DATE/TME: 10/22/2019 06:05 CLINICAL HISTORY: 44 years, Female, multiple seizures, ? hx cancer COMPARISON: 08/26/2019 TECHNIQUE: Axial CT images of the brain were obtained without contrast. Sagittal and coronal reformats were performed. [facility] 1249 Images stored on PACS. All CT scanners at this facility use dose modulation, iterative reconstruction, and/or weight based dosing when appropriate to reduce radiation dose to as low as reasonably achievable (ALARA). [facility]: Dose Right [facility]: CareDose [facility]: Dose Right [facility]: Teradose 4D [facility]: Rogate LIMITATIONS: None. FINDINGS: There is no acute cortical infarct, hemorrhage, mass, edema, hydrocephalus, or extra-axial fluid collection. The okeefe-white matter differentiation is preserved. A mucus retention cyst is in the right maxillary sinus. The mastoid air cells are clear. There is no acute fracture. IMPRESSION: No acute intracranial abnormality. TECHNICAL DOCUMENTATION: Quality ID # [id number]: Final reports with documentation of one or more dose reduction techniques (e.g., Automated exposure control, adjustment of the mA and/or kV according to patient size, use of iterative reconstruction technique) copyright 2010 [employer] [facility] [employer]- All Rights Reserved
[2019-10-22] MEDS ORDERED: DIPHENHYDRAMINE HCL 50 MG/ML VIAL IV ONE ×2 (09:23→12:00)
[2019-10-22] MEDS ORDERED: LORAZEPAM INJ 2 MG/1 ML VIAL IV ONE ×3 (09:23→20:21)
--- NOTE | 2019-10-22 15:09 | RADIOLOGY REPORT (SQ) ---
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 TECHNIQUE: Multiplanar imaging includes non-contrasted T1, T2, FLAIR, and diffusion with ADC map seq uences. Images stored on PACS. LIMITATIONS: None. FINDINGS: ANATOMY: No anomalies. Normal vascular flow voids. Pituitary fossa normal. CSF SPACES: Normal in size and contour. No hemorrhage. CEREBRUM: Sulci and gyri normal in size and contour. Normal white matter signal on FLAIR imaging. No evidence of hemorrhage, mass, or extraaxial fluid collection. POSTERIOR FOSSA: No signal alteration. No hemorrhage. No edema, masses or mass effect. Internal ashwin tory canals, cerebello-pontine angles, mastoids normal. DIFFUSION IMAGING: Negative for acute or sub-acute infarction. ORBITS: No masses. Globes normal. PARANASAL SINUSES: No fluid levels. Mucosa normal. OTHER: No other significant finding. IMPRESSION: NORMAL MRI OF THE BRAIN WITHOUT INTRAVENOUS GADOLINIUM CONTRAST. EVIDENCE OF ACUTE STROKE: NO. TECHNICAL DOCUMENTATION: JOB ID: [id number] 2010 [employer]- All Rights Reserved Reading location - IP/workstation name: [email or web address]
[2019-10-22] MEDS ORDERED: IPRATROPIUM/ALBUTEROL 0.5-2.5 MG/3 ML AMPUL NEB PRN (16:31)
[2019-10-22] MEDS ORDERED: GUAIFENESIN SYRP 200 MG/10 ML UDC PO PRN (16:31)
[2019-10-22] MEDS ORDERED: HYDRALAZINE HCL INJ/PF 20 MG/1 ML SDV IV PRN (16:36)
[2019-10-22] MEDS ORDERED: METOPROLOL TARTRATE PF/INJ 5 MG/5 ML SDV IV PRN (16:36)
--- NOTE | 2019-10-22 17:06 | EKG REPORT ---
SEVERITY:- ABNORMAL ECG - SINUS TACHYCARDIA CONSIDER ANTEROSEPTAL INFARCT : Confirmed by: Arely Edmondson MD 22-Oct-2019 17:05:46
[2019-10-22] MEDS ORDERED: FOLIC ACID 1 MG TABLET PO SCH (17:30)
[2019-10-22] MEDS ORDERED: PROMETHAZINE HCL INJ 25 MG/1 ML VIAL IV PRN (17:30)
[2019-10-22] MEDS ORDERED: LEVOFLOXACIN 500 MG/D5W RTU 500 MG/100 ML RTUPB IV SCH (18:00)
[2019-10-22] MEDS ORDERED: TOPIRAMATE 25 MG TABLET PO SCH (18:00)
--- NOTE | 2019-10-22 18:27 | PDOC H&P ---
History of Present Illness Admission Date/PCP: 10/22/19 15:34 History of Present Illness: MARJAN SIU is a 44 year old female with past medical history of seizure disorder, untreated multiple sclerosis, chronic back pain, hypothyroidism, EtOH abuse brought to ED by EMS after 3 seizures prior to arrival at home. Was noted to have seizures while in the ED, loaded with Keppra and CT head and neck obtained with no acute finding followed by MRI of the head which did not show any acute abnormalities. Hospitalist was consulted for admission. On my encounter patient is alert and oriented x3, in no apparent distress, does not seem to be postictal, complaining of headache, stating that she has history of multiple sclerosis however it is not treated and she does not have neurologist, she is from [place] but currently living with her God Daughter and her , she is planning to move back to [place], she is also supposed to take Topamax for her seizure however she stopped taking it because she was having seizure even though she was taking Topamax, she is stating that she is having chronic back pain and has been drinking alcohol to treat her pain. Patient does not have insurance but is stating that her god daughter pays for her medications. She denies any fever, chills, nausea, vomiting, diarrhea, constipation or any urinary symptoms. Past Medical History Malignancy Medical History: Reports: Bone Cancer - reports "Stage IV PUTTY GLAZER CA" but there is no mention of this from [place] records Past Surgical History Past Surgical History: Reports: Cholecystectomy, Gastric Bypass Surgery, Other - Umbilical hernia repair with use of mesh 2014 Social History Lives with: Family Smoking Status: Current Every Day Smoker Electronic Cigarette use?: No Family History Family History: Reviewed & Not Pertinent Parental Family History Reviewed: Yes Children Family History Reviewed: Yes Sibling(s) Family History Reviewed.: Yes Medication/Allergy Home Medications: Escitalopram Oxalate [Lexapro] 5 mg PO DAILY 10/22/19 Levothyroxine Sodium [Synthroid 0.112 mg Tablet] 0.112 mg PO Q6AM 10/22/19 Topiramate [Topamax 25 mg Tablet] 25 mg PO BID 10/22/19 Allergies/Adverse Reactions: acetaminophen [From Tylenol] Allergy (Verified 04/26/19 00:18) iodine Allergy (Verified 04/26/19 00:18) latex Allergy (Verified 04/26/19 00:18) Penicillins Allergy (Verified 08/19/19 15:40) Review of Systems Review of Systems: as per hpi Physical Exam Vital Signs: Temp Pulse Resp BP Pulse Ox 98.3 F 73 19 111/72 100 10/22/19 17:23 10/22/19 06:39 10/22/19 17:23 10/22/19 17:23 10/22/19 17:23 Intake & Output 10/21/19 10/22/19 10/23/19 06:59 06:59 06:59 Intake Total 1150 Balance 1150 Weight 81.8 kg General appearance: PRESENT: no acute distress, well-developed, well-nourished Head exam: PRESENT: atraumatic, normocephalic Teeth exam: PRESENT: dental caries, poor dentation Respiratory exam: PRESENT: clear to auscultation penelope. ABSENT: rales, rhonchi, wheezes Cardiovascular exam: PRESENT: RRR. ABSENT: diastolic murmur, rubs, systolic murmur GI/Abdominal exam: PRESENT: normal bowel sounds, soft. ABSENT: distended, guarding, mass, organolmegaly, rebound, tenderness Neurological exam: PRESENT: alert, awake, oriented to person, oriented to place, oriented to time, oriented to situation, CN II-XII grossly intact. ABSENT: motor sensory deficit Results Laboratory Results: 10/22/19 02:30 10/22/19 02:30 10/22/19 10/22/19 10/22/19 02:30 02:30 02:30 WBC 4.9 RBC 4.09 Hgb 9.6 L Hct 32.4 L MCV 79 L MCH 23.6 L MCHC 29.8 L RDW 23.7 H Plt Count 288 Seg Neutrophils % 44.7 Sodium 138.1 Potassium 3.0 L* Chloride 108 H Carbon Dioxide 19 L Anion Gap 11 BUN 7 Creatinine 0.52 Est GFR ( Amer) > 60 Glucose 78 Calcium 8.4 Magnesium 2.0 Total Bilirubin 0.3 AST 101 H Alkaline Phosphatase 78 Total Protein 6.2 L Albumin 3.0 L Serum HCG, Qual NEGATIVE Urine Color Urine Appearance Urine pH Ur Specific [place] Urine Protein Urine Glucose (UA) Urine Ketones Urine Blood Urine Nitrite Ur Leukocyte Esterase Urine WBC (Auto) Urine RBC (Auto) 10/22/19 03:10 WBC RBC Hgb Hct MCV MCH MCHC RDW Plt Count Seg Neutrophils % Sodium Potassium Chloride Carbon Dioxide Anion Gap BUN Creatinine Est GFR ( Amer) Glucose Calcium Magnesium Total Bilirubin AST Alkaline Phosphatase Total Protein Albumin Serum HCG, Qual Urine Color YELLOW Urine Appearance SLIGHTLY-CLOUDY Urine pH 6.0 Ur Specific [place] 1.004 Urine Protein NEGATIVE Urine Glucose (UA) NEGATIVE Urine Ketones NEGATIVE Urine Blood LARGE H Urine Nitrite NEGATIVE Ur Leukocyte Esterase MODERATE H Urine WBC (Auto) 14 Urine RBC (Auto) 4 Impressions: Chest X-Ray 10/22/19 02:11 IMPRESSION: No acute intrathoracic process is identified copyright 2010 [email or web address]- All Rights Reserved Cervical Spine CT 10/22/19 06:05 IMPRESSION: No acute findings. Head CT 10/22/19 06:05 IMPRESSION: No acute intracranial abnormality. TECHNICAL DOCUMENTATION: Quality ID # [id number]: Final reports with documentation of one or more dose reduction techniques (e.g., Automated exposure control, adjustment of the mA and/or kV according to patient size, use of iterative reconstruction technique) copyright 2010 [employer]- All Rights Reserved Head MRI 10/22/19 07:58 IMPRESSION: NORMAL MRI OF THE BRAIN WITHOUT INTRAVENOUS GADOLINIUM CONTRAST. EVIDENCE OF ACUTE STROKE: NO. Assessment and Plan - Diagnosis (1) Seizure disorder Is this a current diagnosis for this admission?: Yes Plan: Likely due to EtOH abuse and noncompliance with her medication. Patient extensively counseled on alcohol abstinence and medication compliance. Was loaded on Keppra at ED. No recurrence since then. CT head, CT neck, MRI head negative for any acute abnormalities. Admit to IMCU, continue Topamax, continue Keppra, PRN benzos, seizure, fall, aspiration precautions. Consult discharge planning for possible medication assistance. (2) UTI (urinary tract infection) Qualifiers: Urinary tract infection type: acute cystitis Is this a current diagnosis for this admission?: Yes Plan: Likely due to gram-negative rods including E. coli. Received 1 dose of ceftriaxone in the ED. We will switch to p.o. levofloxacin. Follow-up urine culture. (3) Chronic back pain Qualifiers: Back pain location: thoracic back pain Back pain laterality: bilateral Qualified Code(s): M54.6 - Pain in thoracic spine; G89.29 - Other chronic pain Is this a current diagnosis for this admission?: Yes Plan: Denies any trauma. Denies any back surgery. Patient stated that she has been having back pain since she was diagnosed with multiple sclerosis in 2019. Continue supportive measures. (4) Multiple sclerosis Is this a current diagnosis for this admission?: Yes Plan: As per patient she was diagnosed in 2019. Does not see a neurologist. Was receiving chemotherapy as outpatient but does not recall by home. Currently not taking any medication. MRI head without contrast is negative for any acute abnormalities. Does not seem to be an acute MS flare. MRI without contrast negative for any acute changes. Outpatient PCP, neurology follow-up. (5) Noncompliance with medication regimen Is this a current diagnosis for this admission?: Yes Plan: Encourage medication compliance. We will consult clinical social work aide for possible assistance. (6) Alcohol intoxication Qualifiers: Complication of substance-induced condition: with unspecified complication Qualified Code(s): F10.929 - Alcohol use, unspecified with intoxication, unspecified Is this a current diagnosis for this admission?: Yes Plan: EtOH level 101. Not appear to be withdrawing. Admit to telemetry. DT precautions.
[2019-10-22] MEDS: MORPHINE SULFATE 10 MG/ML INJ IV PRN ×2 (18:46→22:32)
[2019-10-22 19:44] LABS: BLOOD UREA NITROGEN 8 mg/dL (7-20); CALCIUM 8.1 mg/dL (8.4-10.2); CARBON DIOXIDE 28 mmol/L (22-30); CHLORIDE 106 mmol/L (98-107); GLUCOSE 96 mg/dL (75-110); POTASSIUM 3.5 mmol/L (3.6-5.0)
[2019-10-22 20:02] LABS: ANION GAP 4 (5-19)
[2019-10-22] MEDS: LORAZEPAM INJ 2 MG/1 ML VIAL IV PRN (20:20)
[2019-10-22] MEDS ORDERED: LEVETIRACETAM 500 MG/NACL-ISO 500 MG/100 ML RTUPB IV ONE (20:25)
--- NOTE | 2019-10-22 20:30 | ER Document Report ---
Doctor's Note Notes: 10/22/19 20:28 I was notified by nursing that the patient was having ongoing seizure activity. She is admitted to medicine, awaiting a bed upstairs. Patient had received IV Keppra last night, did not receive any of her oral doses today. I went in to evaluate the patient. She was seizing. Her eyes were rolled back, she did have some opisthotonic movements, flexion at the wrists and elbows. 2 mg of IV Ativan were ordered. In light of her not receiving any oral doses of Keppra, decision was made to reload her with 500 mg of IV Keppra here. Seizure activity broke with a 2 mg of IV Ativan. We will go back to reassess shortly.
[2019-10-22] MEDS ORDERED: LEVETIRACETAM INJ/PF 500 MG/5 ML SDV IV ONE (20:55)
[2019-10-22] MEDS ORDERED: FAMOTIDINE 20 MG TABLET PO SCH (22:00)
[2019-10-22] MEDS ORDERED: LEVETIRACETAM 500 MG TABLET PO SCH (22:00)
[2019-10-23] MEDS: MORPHINE SULFATE 10 MG/ML INJ IV PRN (02:02)
[2019-10-23] MEDS ORDERED: LEVOTHYROXINE SODIUM 0.112 MG TABLET PO SCH (06:00)
[2019-10-23] MEDS: LORAZEPAM INJ 2 MG/1 ML VIAL IV PRN (06:11)
[2019-10-23 07:23] LABS: HEMATOCRIT 30.3 % (36.0-47.0); HEMOGLOBIN 9.7 g/dL (12.0-15.5); MEAN CORPUSCULAR HEMOGLOBIN 24.2 pg (27.0-33.4); MEAN CORPUSCULAR VOLUME 76 fl (80-97); PLATELET COUNT 305 10^3/uL (150-450); RED BLOOD COUNT 4.02 10^6/uL (3.72-5.28)
[2019-10-23 07:39] LABS: ALBUMIN 3.3 g/dL (3.5-5.0); ALKALINE PHOSPHATASE 105 U/L (38-126); ANION GAP 6 (5-19); ASPARTATE AMINO TRANSFERASE 42 U/L (14-36); BILIRUBIN,TOTAL 0.4 mg/dL (0.2-1.3); BLOOD UREA NITROGEN 9 mg/dL (7-20); CALCIUM 8.8 mg/dL (8.4-10.2); CARBON DIOXIDE 25 mmol/L (22-30); CHLORIDE 105 mmol/L (98-107); GLUCOSE 88 mg/dL (75-110); TOTAL PROTEIN 6.8 g/dL (6.3-8.2)
[2019-10-23 08:12] VITALS: BP 142/94
[2019-10-23] MEDS ORDERED: LEVOFLOXACIN 500 MG/D5W RTU 500 MG/100 ML RTUPB IV SCH (10:00)
[2019-10-23] MEDS ORDERED: (PENDING PHARMACY ID) (Escitalopram Oxalate [Lexapro] 5 MG) PO SCH (10:00)
[2019-10-23] MEDS ORDERED: ESCITALOPRAM OXALATE 10 MG TABLET PO SCH (10:00)
[2019-10-23] MEDS ORDERED: ENOXAPARIN SODIUM INJ 40 MG/0.4 ML DISP.SYRIN SUBCUT SCH (10:00)
--- NOTE | 2019-10-23 11:29 | PSYCHOLOGICAL NOTE ---
Psych Note - Psych Note Date seen by psych provider: 10/23/19 Time seen by psych provider: 08:45 Psych Note: Reason For Consult:confusion Patient refuses to engage with clinician. She is able to conduct in an organized conversation; however, is very fixated and refuses to follow directions. She is calm but engages in argumentative conversations. She continues to roam the hallways and will not stay in her room or the ED. Patient reports she wants the written policy that states she can not walk the hallways. Patient's son in law spoke with patient on the phone then spoke with clinician. He reports she baseline and has a significant dislike of doctors and does not trust. He confirms he will come and assist the patient; this is in the hope that if the patient hears why requests are being made from someone she trust, it will facilitate the rapport. Patient is alert and orientated to person, place, time and circumstance. Mood is euthymic with congruent affect. Patient denies suicidal and homicidal ideation. Delusions are absent and behaviors congruent with an intact reality based presentation ie organized and linear thought process. thought content is very fixated on doing what she wants, when she wants. Eye contact is well- maintained. Conversational speech is within normal rate, tone and prosody. Intellectual abilities appear to be within the average range. Attention poor and concentration are fair. Insight, judgment, impulse control are fair. Impression\plan: Patient is cleared from acute psychiatric services. At this time patient's family report the patient is baseline. While patient's behavior is concerning, it appears to be volitional in nature i.e. patient is very fixated on what she wants to do and when she wants to do it and will not take redirection. Patient denies suicidal homicidal ideation. While patient appears to be confused or paranoid, patient's family reports she is very distrustful and dislikes doctors. At this time there is no indication that the patient meets IVC criteria per [place] GS 122C. Dr. Caldwell was consulted to care management of this patient; attending physicians in agreement with recommendations and disposition.
== END 2019-10-23 12:11 | disposition left against medical advice (07) ==
LOC: ER 01:58 → EH 15:34 → INTOOBSV 15:34
PROVIDERS: ADMIT Internal Medicine; ATTEND Internal Medicine
DX: G40.909 Epilepsy, unspecified, not intractable, without status epilepticus (principal); N30.00 Acute cystitis without hematuria; G89.29 Other chronic pain; M54.6 Pain in thoracic spine; G35 Multiple sclerosis; Z79.899 Other long term (current) drug therapy; Z91.14 Patient's other noncompliance with medication regimen; F10.929 Alcohol use, unspecified with intoxication, unspecified; Y90.5 Blood alcohol level of 100-119 mg/100 ml; E87.6 Hypokalemia; F91.8 Other conduct disorders; R00.0 Tachycardia, unspecified; F17.200 Nicotine dependence, unspecified, uncomplicated; Z98.84 Bariatric surgery status; Z85.830 Personal history of malignant neoplasm of bone; Z85.848 Personal history of malignant neoplasm of other parts of nervous tissue; Z90.49 Acquired absence of other specified parts of digestive tract; R40.2412 Glasgow coma scale score 13-15, at arrival to emergency department
CPT/HCPCS: 93005; 99285; 96375; 96365; 96367; 36415 ×2; 87040; 87086; 80307 ×2; 83735; 84703; 85025; 85027; 87088; 80053 ×2; 81001; 70551; 71045; 70450; 72125; 93010; J2250; J1956; J1200; J2270 ×2; J2060 ×2; J2550; J3490 ×4; J7030; J0696; J1953 ×2; 87186